=== PATIENT | male | born 1940 | race Two or more races ===

== ENCOUNTER 2020-06-14 10:11 | Inpatient (IN) | payer MEDICARE, OTHER ==
[~2020-06-14] VITALS: Ht 185.4 cm; Wt 106.4 kg
[2020-06-14 10:50] LABS: Basophils # (auto) 0 10 ^3/uL (0-0.2); Basophils % (auto) 0.7 % (0.0-2.0); Eosinophils # (auto) 0 10 ^3/uL (0-0.8); Eosinophils % (auto) 0.3 % (0.0-7.0); Hematocrit 46.7 % (41.0-53.0); Hemoglobin 15.5 g/dL (13.5-17.5); Lymphocytes # (auto) 0.5 10 ^3/uL (0.4-5.4); Lymphocytes % (auto) 8.1 % (10.0-50.0); Mean Corpuscular Hemoglobin 30.2 pg (28.0-32.0); Mean Corpuscular Hgb Conc. 33.2 g/dL (32.0-36.0); Mean Corpuscular Volume 90.8 fL (80.0-100.0); Monocytes # (auto) 0.4 10 ^3/uL (0-1.3); Monocytes % (auto) 6.4 % (0.0-12.0); Neutrophils # (auto) 5.4 10 ^3/uL (1.6-8.6); Neutrophils % (auto) 84.5 % (37.0-80.0); Nucleated Red Blood Cells % 0.1 %; Platelet Count (auto) 204 10^3/uL (140-450); Red Blood Cells 5.14 10^6/uL (4.5-5.90); Red Cell Distribution Width 15.3 % (11.8-14.3); White Blood Cell 6.4 10^3/uL (4.4-10.8)
[2020-06-14 11:09] LABS: Albumin 2.9 g/dL (3.4-5.0); Calcium 8.2 mg/dL (8.5-10.1); Magnesium 2.4 mg/dL (1.6-2.6); Potassium 3.1 mmol/L (3.5-5.1)
[2020-06-14 11:14] LABS: BUN/Creatinine Ratio 13.7; Total Protein 7.1 g/dL (6.4-8.2)
[2020-06-14] MEDS ORDERED: cefTRIAXone 1GM/50ML D5W 50 ML IV ONE (12:30)
[2020-06-14] MEDS ORDERED: SODIUM CHLORIDE 0.9% 1,000 ML IVB ONE (12:30)
[2020-06-14] MEDS ORDERED: POTASSIUM CHL 20 Meq TABLET PO ONE (13:15)
[2020-06-14 13:42] LABS: INR 1.12 (0.9-1.15); Partial Thromboplastin Time 31.9 sec (23.0-31.2)
[2020-06-14] MEDS ORDERED: MORPHINE SULF INJ 2 MG/ML SYRINGE 1ML IV PRN (13:45)
[2020-06-14] MEDS ORDERED: NITROGLYCERIN 0.4 MG SL TAB SL PRN (13:45)
[2020-06-14] MEDS ORDERED: ACETAMINOPHEN 500 MG TAB PO PRN (14:00)
[2020-06-14] MEDS ORDERED: ALBUTEROL SULF HFA 90MCG INH 200DOSE IN SCH (14:00)
[2020-06-14] MEDS ORDERED: POTASSIUM EFFERVESENT TAB 25 MEQ PO ONE (14:15)
[2020-06-14] MEDS ORDERED: ONDANSETRON HCL 4 MG/2 ML VIAL IV PRN (14:15)
[2020-06-14] MEDS ORDERED: LACTULOSE 20Gm/30ML SOLN PO PRN (14:15)
[2020-06-14] MEDS ORDERED: traMADol HCL 50 MG TAB PO PRN (14:15)
[2020-06-14] MEDS ORDERED: DEXTROSE (50%) 50ML SYRG IV PRN (14:15)
[2020-06-14] MEDS ORDERED: LABETALOL HCL 5 MG/ML 4ML SYRINGE IV PRN (15:30)
[2020-06-14] MEDS ORDERED: POTA10TA51 PO (16:59)
[2020-06-14] MEDS ORDERED: CARV12.544 PO (16:59)
[2020-06-14] MEDS ORDERED: DIGO0.12 PO (16:59)
[2020-06-14] MEDS ORDERED: FURO40TA4 PO (16:59)
[2020-06-14] MEDS ORDERED: ATOR20TA50 PO (16:59)
[2020-06-14] MEDS ORDERED: HYDR10TA26 PO (16:59)
[2020-06-14] MEDS ORDERED: AMLO5TAB15 PO (16:59)
[2020-06-14] MEDS ORDERED: TAMS0.4C36 PO (16:59)
[2020-06-14] MEDS: ACCU-CHEK COMFORT CURVE STRIP VI SCH ×2 (17:18→21:34)
--- NOTE | 2020-06-14 17:50 | NUR ---
Telemetry admit from [facility] admitted to Telemetry unit after SBAR received. Patient oriented to Kristyn Pierson, primary RN, unit, room, bed, and unit policies regarding patient care and visiting hours. Patient now on continuous telemetry monitoring, tele box # 12 and telemetry reading on arrival to unit is . Patient placed on bedside oxygen, weighed by bedscale and encouraged to call if they need something. All questions and concerns addressed, patient verbalized understanding. Note:
[2020-06-14 18:00] VITALS: BP 140/74
--- NOTE | 2020-06-14 18:01 | NUR ---
ASSESSMENT NOTE PT IS ALERT ORIENTED X4, AMBULATE NEEDED, ARRIVED VIA WHEELCHAIR TO ROOM 232, A HEARING AIDE NOTED AT THE RT EAR, OCCASIONAL COUGH NOTED, RA, NO DISTRESS NOTED, ROOM ORIENTATION GIVEN TO PT, CALL LIGHT WITHIN REACH
--- NOTE | 2020-06-14 18:50 | NUR ---
PT CONTINUE STABLE,EATING DINNER, NO DISTRESS NOTED, TEMP 99.2, CONTINUE COOL MEASURES
--- NOTE | 2020-06-14 19:30 | NUR ---
OPENING NOTE Received report from day shift RN. Patient is A&O X's 4- guatemalan speaking with no s/s of distress and reports some SOB and cough. Patient is on RA/ 2L O2 via N.C was applied at this time for comfort. Pulse ox is 94%. Educated patient on POC/to use call light when in need of any assistance. Patient verbalized understanding. Bed is in lowest/locked position with side rails up X's 2 and call light is within reach of patient. Will continue care.
[2020-06-14] MEDS: CARVEDILOL 3.125 MG TAB PO SCH (21:28)
[2020-06-14] MEDS: SODIUM CHLOR 0.9% PF (SALINE LOCK) 10ML VIAL/SYR IV SCH ×2 (21:29→23:55)
[2020-06-14] MEDS ORDERED: BUDESONIDE (INHALATION) 180 MCG IH IN SCH (22:00)
[2020-06-14 22:26] VITALS: BP 141/72
--- NOTE | 2020-06-14 22:26 | NUR ---
REPORT GIVEN TO BLAS HARVEY. FULL REPORT GIVEN AND RECOMMENDED TO GET BREATHING TREATMENTS/COUGH SYRUP ON BOARD FOR PATIENT D/T COUGHING EPISODE AFTER PATIENT AMBULATED AND SOME WHEEZING HEARD UPON AUSCULTATION. PATIENT TRANSFERRED VIA WHEELCHAIR AND WITH 3L O2 VIA N.C. INFORMED WES THAT TELE BOX NEEDS TO BE CHANGED WELL AT THIS TIME. PATIENT LEFT WITH ALL PERSONAL BELONGINGS AND WITH NO S/S OF DISTRESS. ENDORSED CARE
--- NOTE | 2020-06-14 22:27 | NUR ---
Pt received from [facility] Upon assessment, pt showing SOB after ambulation. Pt has cough, lung sounds present with wheezing in bilateral lung kahn. Currently oxygen 94% on 3Lo2. T99.3, Pulse 105, resp 22, 151/94 0 pain. Will page front desk coordinator hospitalist for breathing treatment orders.
--- NOTE | 2020-06-14 23:30 | NUR ---
Paged by hospitalist New orders for Robitussin and albuterol. See order history.
[2020-06-14] MEDS ORDERED: guaiFENesin-DM 100/10mg/5ml SYR PO PRN (23:45)
[2020-06-15 00:28] VITALS: BP 141/72
[2020-06-15] MEDS: ALBUTEROL SULF 2.5 MG/0.5ML(0.5%) NEB SOLN NEB PRN (01:16)
[2020-06-15 05:00] VITALS: BP 145/76
--- NOTE | 2020-06-15 06:10 | NUR ---
Respiratory note: PT IS RESTING COMFORTABLY. NO RESPIRATORY DISTRESS NOTED. SPO2 95% ON 3L NC,HR 96, RR 18, BS CLEAR BILATERALLY. PRN MEDNEB TX NOT INDICATED AT THIS TIME. WILL CONTINUE TO MONITOR PT.
[2020-06-15] MEDS: ACCU-CHEK COMFORT CURVE STRIP VI SCH (06:11)
[2020-06-15 07:04] LABS: Calcium 8.2 mg/dL (8.5-10.1); Potassium 3.5 mmol/L (3.5-5.1)
[2020-06-15 07:09] LABS: Cholesterol 106 mg/dL (< 200); Triglycerides 61 mg/dL (< 150)
[2020-06-15 07:12] LABS: BUN/Creatinine Ratio 16.2; Bilirubin, Total 1.1 mg/dL (0.2-1.0); HDL Cholesterol 39 mg/dL (40-59); LDL Cholesterol 64 mg/dL (< 100)
[2020-06-15 09:00] VITALS: BP 145/76
[2020-06-15] MEDS: POTASSIUM CHL 20 Meq TABLET PO SCH (09:45)
[2020-06-15] MEDS: CARVEDILOL 3.125 MG TAB PO SCH ×2 (09:46→22:19)
[2020-06-15] MEDS: ENOXAPARIN SOD 40 MG/0.4 ML SYRINGE SC SCH (09:47)
[2020-06-15] MEDS: FUROSEMIDE 40 MG/4 ML VIAL IV SCH (09:47)
[2020-06-15] MEDS: NITROGLYCERIN 0.2MG/HR TOPICAL PATCH TD SCH (09:47)
[2020-06-15] MEDS ORDERED: DexAMETHasone SOD PHOS 10MG/1ML VIAL INJ IV SCH (10:00)
[2020-06-15] MEDS ORDERED: CHOLECALCIFEROL (VITD3) 2,000 UNIT CAP PO SCH (10:00)
[2020-06-15] MEDS ORDERED: ASCORBIC ACID 1,000 MG TAB PO SCH (10:00)
[2020-06-15] MEDS ORDERED: levoFLOXacin 500MG 100 ML IV SCH (10:00)
[2020-06-15] MEDS ORDERED: ZINC SULFATE 220mg CAP or TAB PO SCH (10:00)
[2020-06-15] MEDS ORDERED: ENALAPRIL MALEATE 2.5 MG TAB PO SCH (10:00)
[2020-06-15] MEDS ORDERED: ASPirin 81 mg TAB PO ONE (11:00)
[2020-06-15] MEDS ORDERED: ACETAMINOPHEN 500 MG TAB PO PRN (11:00)
--- NOTE | 2020-06-15 12:00 | NUR ---
RECEIVED CALL FROM MICROBIOLOGY PER TECH PATIENT IS BLOOD CULTURES ARE POSITIVE(SEE MICRO REPORT) . SPOKE WITH DOCTOR MERI ADORNO MD OF POSITIVE RESULTS. NO NEW ORDERS RECEIVED AT THIS TIME.
[2020-06-15 13:00] VITALS: BP 125/79
[2020-06-15] MEDS: CIPROFLOXACIN 0.3%OPTH(EYE) SOL 5ML RIGHTEYE SCH ×3 (14:00→22:19)
[2020-06-15] MEDS: SODIUM CHLOR 0.9% PF (SALINE LOCK) 10ML VIAL/SYR IV SCH ×2 (14:00→22:23)
--- NOTE | 2020-06-15 14:51 | NUR ---
URINE SAMPLE SENT.
[2020-06-15 15:00] LABS: Urine WBC None Seen /hpf (0 - 3)
[2020-06-15 15:12] LABS: Urine Bacteria NONE SEEN /hpf (None Seen); Urine Blood TRACE /uL (Negative); Urine Mucus FEW (None Seen); Urine Specific Gravity 1.008 (1.001-1.035)
[2020-06-15 17:00] VITALS: BP 130/88
--- NOTE | 2020-06-15 19:20 | NUR ---
Opening Shift Note Assumed care of patient, awake and alert. Patient is a citizen of [place] speaker on 2L nasal cannula. No S/S of distress/SOB or pain. Instructed on POC and to call for assist PRN, will continue to monitor for changes Q1hr and PRN. Bed is locked and in the lowest position. Call light within reach
[2020-06-15 22:00] VITALS: BP 143/74
[2020-06-15] MEDS: ATORVASTATIN 20 MG TAB PO SCH (22:19)
[2020-06-16] VITALS (10 sets, daily range): BP systolic 103–142; BP diastolic 57–84
--- NOTE | 2020-06-16 | NUR ---
Respiratory note: PT SEEN AND ASSESSED FOR PRN MED NEB TX AT 0000. TX NOT INDICATED AT THIS TIME. PT DISPLAYING NO SIGNS OF DISTRESS. SP02 95% ON 2LNC.
[2020-06-16] MEDS: CIPROFLOXACIN 0.3%OPTH(EYE) SOL 5ML RIGHTEYE SCH ×6 (02:00→21:51)
[2020-06-16] MEDS: ALBUTEROL SULF 2.5 MG/0.5ML(0.5%) NEB SOLN NEB PRN ×2 (04:36→08:11)
[2020-06-16] MEDS: SODIUM CHLOR 0.9% PF (SALINE LOCK) 10ML VIAL/SYR IV SCH ×3 (05:49→21:50)
[2020-06-16 07:52] LABS: Potassium 3.3 mmol/L (3.5-5.1)
[2020-06-16 07:58] LABS: BUN/Creatinine Ratio 23.5; Calcium 8.3 mg/dL (8.5-10.1)
[2020-06-16] MEDS: FUROSEMIDE 40 MG/4 ML VIAL IV SCH (09:43)
[2020-06-16] MEDS: ENOXAPARIN SOD 40 MG/0.4 ML SYRINGE SC SCH (09:43)
[2020-06-16] MEDS: ASPirin 81 mg TAB PO SCH (09:43)
[2020-06-16] MEDS: POTASSIUM CHL 20 Meq TABLET PO SCH (09:44)
[2020-06-16] MEDS: NITROGLYCERIN 0.2MG/HR TOPICAL PATCH TD SCH (09:44)
[2020-06-16] MEDS: CARVEDILOL 3.125 MG TAB PO SCH ×2 (09:49→21:51)
[2020-06-16] MEDS ORDERED: ENALAPRIL MALEATE 2.5 MG TAB PO SCH (10:00)
[2020-06-16] MEDS ORDERED: ONDANSETRON HCL 4 MG/2 ML VIAL IV ONE (11:45)
[2020-06-16] MEDS ORDERED: POTASSIUM CHL 20 Meq TABLET PO ONE (11:45)
[2020-06-16 12:49] LABS: Basophils # (auto) 0 10 ^3/uL (0-0.2); Basophils % (auto) 0.6 % (0.0-2.0); Eosinophils # (auto) 0.1 10 ^3/uL (0-0.8); Hematocrit 41.9 % (41.0-53.0); Hemoglobin 13.9 g/dL (13.5-17.5); Lymphocytes # (auto) 0.6 10 ^3/uL (0.4-5.4); Lymphocytes % (auto) 9.5 % (10.0-50.0); Mean Corpuscular Hemoglobin 29.9 pg (28.0-32.0); Mean Corpuscular Hgb Conc. 33.1 g/dL (32.0-36.0); Mean Corpuscular Volume 90.3 fL (80.0-100.0); Monocytes # (auto) 0.6 10 ^3/uL (0-1.3); Monocytes % (auto) 8.9 % (0.0-12.0); Neutrophils # (auto) 4.9 10 ^3/uL (1.6-8.6); Nucleated Red Blood Cells % 0.1 %; Platelet Count (auto) 227 10^3/uL (140-450); Red Blood Cells 4.64 10^6/uL (4.5-5.90); Red Cell Distribution Width 14.7 % (11.8-14.3); White Blood Cell 6.2 10^3/uL (4.4-10.8)
[2020-06-16 13:04] LABS: INR 1.13 (0.9-1.15); Partial Thromboplastin Time 37.3 sec (23.0-31.2)
[2020-06-16 13:06] LABS: BUN/Creatinine Ratio 25.5; Calcium 8.3 mg/dL (8.5-10.1); Potassium 3.4 mmol/L (3.5-5.1)
--- NOTE | 2020-06-16 13:25 | NUR ---
PATIENT TAKEN DOWN TO LONG FILLER CIGAR ROLLER MACHINE FOR PROCEDURE. YARA MONCADA AND DOCTOR HAKEEM INFORMED THAT PATIENT RECEIVED ASPIRIN AND LOVENOX TODAY AND THAT PATIENT HAD NOT RECEIVED LUNCH TRAY AND WAS KEPT NPO SINCE 11:30 HEART CATH CONSENT WHERE DISCUSSED WITH PATIENT BY YARA MONCADA AND WITNESS BY THIS RN.
[2020-06-16] MEDS ORDERED: ANGIOMAX 250 MG VIAL IV ONE (13:30)
[2020-06-16] MEDS ORDERED: HEPARIN SODIUM (PORCINE) 5000 UNITS/ML 1ML VIAL ONE (13:30)
[2020-06-16] MEDS ORDERED: VERAPAMIL 2.5MG/ML INJ 2ML VIAL IV ONE (13:30)
[2020-06-16] MEDS ORDERED: IOHEXOL 350 MG/ML 100ML IJ ONE (13:31)
[2020-06-16] MEDS ORDERED: MIDAZOLAM HCL 1MG/1ML-2 ML VIAL ONE (13:31)
[2020-06-16] MEDS ORDERED: fentaNYL CITRATE 100 MCG/2 ML VL ONE (13:31)
[2020-06-16] MEDS ORDERED: SODIUM CHL 0.9% 0 ML ONE (13:31)
[2020-06-16] MEDS ORDERED: LIDOCAINE 2%HCL (LOCAL ANESTH.) INJ 20ML MDV ONE (13:32)
--- NOTE | 2020-06-16 14:25 | NUR ---
Patient brought to recovery via bed, report received from BLAS Carrion and BLAS Briones. Patient is AO x 4, NAD noted. Right radial site is benign no s/s of bleeding or hematoma formation. Vasc Band is in place, positive circulation, movement and sensation noted to BUE. Patient verbalized understanding to post-procedure care instructions.
--- NOTE | 2020-06-16 14:41 | NUR ---
Report given to primary RN, Ayse.
--- NOTE | 2020-06-16 14:57 | NUR ---
Patient taken to telemetry unit via bed, quality control expert in place. NAD noted upon departure. Primary RNAyse present at bedside to witness right radial site benign, no s/s of bleeding or hematoma formation. Bed set in lowest locked position with side rails up x 2, call light is within reach and bed alarm set on for safety. Care endorsed to BLAS Tavera.
--- NOTE | 2020-06-16 15:03 | NUR ---
PATIENT BACK FROM CONCRETE PILE DRIVER OPERATOR WITH RIGHT WRIST VASO BAND. RIGHT WRIST IS SOFT TO TOUCH AND NO HEMATOMA NOTED. V/S WNL 97.9 TEMP 77 HR 18 RR 96% 113/66 B/P.
--- NOTE | 2020-06-16 15:58 | NUR ---
I faxed life vest order to [facility].
--- NOTE | 2020-06-16 19:15 | NUR ---
Opening Shift Note Assumed care of patient, awake and alert. No S/S of distress/SOB or pain. Patient is a Mohawk speaker. S/p left heart cath via right radial artery. Surgical site is covered with gauze and Tegaderm and shows no hematoma or bleeding. Instructed on POC and to call for assist PRN, will continue to monitor for changes Q1hr and PRN.
--- NOTE | 2020-06-16 21:35 | NUR ---
Respiratory note: NO PRN TX GIVEN AT THIS TIME, NO SOB NOTED. PT ON R/A, 93%, HR 102, RR 20. PT IN THE PROCESS OF PUTTING NASAL CANNULA BACK ON, RUNNING AT 4LPM, DECREASED TO 2LPM.
[2020-06-16] MEDS: ATORVASTATIN 20 MG TAB PO SCH (21:51)
[2020-06-17] MEDS: CIPROFLOXACIN 0.3%OPTH(EYE) SOL 5ML RIGHTEYE SCH ×5 (02:00→18:00)
[2020-06-17] MEDS: SODIUM CHLOR 0.9% PF (SALINE LOCK) 10ML VIAL/SYR IV SCH ×2 (05:43→13:48)
[2020-06-17 06:57] LABS: BUN/Creatinine Ratio 27.1; Calcium 8.4 mg/dL (8.5-10.1); Potassium 3.7 mmol/L (3.5-5.1)
--- NOTE | 2020-06-17 08:20 | NUR ---
Opening Shift Note Received report from donor relations manager nurse and assumed care of the patient, Patient awake and alert. Nasal cannula in place 3L, no S/S of distress/SOB or pain. Patient instructed on POC and to call for assist PRN, bed in lowest position, call light within reach, will continue to monitor for changes Q1hr and PRN.
[2020-06-17 09:00] VITALS: BP 126/71
--- NOTE | 2020-06-17 09:40 | NUR ---
SOCIAL SERVICE AT BEDSIDE
[2020-06-17] MEDS: ASPirin 81 mg TAB PO SCH (09:46)
[2020-06-17] MEDS: CARVEDILOL 3.125 MG TAB PO SCH (09:46)
[2020-06-17] MEDS: POTASSIUM CHL 20 Meq TABLET PO SCH (09:47)
[2020-06-17] MEDS: FUROSEMIDE 40 MG/4 ML VIAL IV SCH (09:48)
[2020-06-17] MEDS: NITROGLYCERIN 0.2MG/HR TOPICAL PATCH TD SCH (09:51)
[2020-06-17] MEDS: ENOXAPARIN SOD 40 MG/0.4 ML SYRINGE SC SCH (09:52)
[2020-06-17] MEDS ORDERED: ENALAPRIL MALEATE 2.5 MG TAB PO SCH (10:00)
--- NOTE | 2020-06-17 10:00 | NUR ---
Patient educated on titrating oxygen for discharge purposes Tested patient oxygen level on room air, rechecked O2 saturation with a reading of 89-90% at rest. Patient noted no s/s of SOB. Titrated patients oxygen level from 3L to 1L. Will recheck O2 saturation on titrated oxygen of 1L.
--- NOTE | 2020-06-17 10:20 | NUR ---
Rechecked patients oxygen saturation Patients oxygen saturation post titration of 3L to 1L 90-91%. Patients O2 tested with coughing/deep breathing. Will continue titrating oxygen level. Will retest on room air and ambulation.
--- NOTE | 2020-06-17 10:50 | NUR ---
Talked to daughter Karlie No password in chart, no update given to Karlie. Questions directed directly to patient. Will confirm with patient on request for password.
--- NOTE | 2020-06-17 11:00 | NUR ---
MD Aguirre at bedside MD Aguirre updated on titration on oxygen from 3 L to 1 L and oxygen saturation after 1L titration with coughing/deep breathing of 90-91%. aware of testing patient oxygen saturation on room air and ambulating.
--- NOTE | 2020-06-17 11:04 | NUR ---
Password Spoke with patient for request of password to update Karlie of care. Password requested: (Viviana)
--- NOTE | 2020-06-17 11:10 | NUR ---
Oxygen saturation reassessed Post ambulation oxygen saturation 94% down to 88% after resting for a minute, Heart rate 96, patient experiencing SOB. Oxygen reapplied via nasal cannula. Will continue to reassess oxygen saturation and signs of SOB PRN.
--- NOTE | 2020-06-17 11:26 | NUR ---
MD Aguirre at bedside Patient updated on POC, new orders received from MD Aguirre for discharge home and Left shoulder x-ray. Awaiting for life vest to arrive for discharge.
--- NOTE | 2020-06-17 11:41 | NUR ---
Assessment Patient is an 80-year-old male, who is alert and oriented Kinyarwanda speaking only. Patient was required a court attendant (Tracee ODONNELL), patient stated that he lives with his son (Suresh Banuelos). Per court attendant, prior to admission to [facility], patient was ambulatory and can do all ADLs independently. Patient is receiving social security as income. Patient stated that his friend (Renea [phone]) will provide transportation post discharge. Per court attendant, patient stated that his son is his support system. Patient was not receptive to receive Advance Directive forms. Discharge planning: Patient has no post discharge needs to determine at this moment. Addendum: 06/17/20 at 1142 by BRITTANY JAMES Amended: Links added.
[2020-06-17 12:30] VITALS: BP 120/69
--- NOTE | 2020-06-17 13:30 | NUR ---
TAHIRA WICKER MOLDED CANDLES AT BEDSIDE PATIENT RECEIVED EDUCATION FOR [employer]OLL LIFE VEST WITH THERMAL CUTTER HELPER AT BEDSIDE, PATIENT HANDED PAMPHLET OF EDUCATION GIVEN. PATIENT HAS NO FURTHER QUESTIONS ON EDUCATION GIVEN. AWAITING LIFE VEST FOR FITTING.
[2020-06-17 14:07] VITALS: BP 120/69
--- NOTE | 2020-06-17 15:59 | NUR ---
Updated patient on POC/[employer] LifeVest [employer] rep to be at bedside at approximately [phone] per [employer] Life[employer]est rep. Patient verbalized understanding.
--- NOTE | 2020-06-17 16:05 | NUR ---
RE: Next of Kin Contacted Karlie to update on discharge education and discharge plan. Karlie verbalized understanding.
[2020-06-17] MEDS ORDERED: ASPI81CH43 PO (16:12)
[2020-06-17] MEDS ORDERED: CARV6.25 PO (16:12)
[2020-06-17 16:38] VITALS: BP 132/74
--- NOTE | 2020-06-17 17:50 | NUR ---
Discharge prescriptions faxed to preferred pharmacy.
[2020-06-17] MEDS ORDERED: CIPR0.3S40 RIGHTEYE (17:54)
[2020-06-17] MEDS ORDERED: ENAL5TAB10 PO (17:54)
[2020-06-17] MEDS ORDERED: ISOS20TA49 PO (17:54)
--- NOTE | 2020-06-17 18:16 | NUR ---
Verified discharge prescriptions were received by [facility] pharmacy. Prescriptions received per pharmacist.
--- NOTE | 2020-06-17 19:30 | NUR ---
Care endorsed/End of shift Patient resting in bed with even and unlabored respirations, no distress noted. Fall precautions in place with call light within reach. Discharge pending Zoll LifeVest placement. Care endorsed to BLAS Neville.
--- NOTE | 2020-06-17 19:40 | NUR ---
Opening Shift Note Assumed patient care from Day Shift RN. Patient is AOx4 and sitting up. Patient is aware that D/C will be done after Zoll life vest fitting. Bed is locked in lowest position and HOB is at 90 degrees. Call light is within reach. No complaints of pain, no s/s of distress or SOB. Will continue to monitor.
--- NOTE | 2020-06-17 19:51 | NUR ---
Respiratory note: PT ASSESSED FOR PRN TX AT THIS TIME. HEART RATE 91. RESPIRATORY RATE 18. SPO2 92% ON 2L NC. BREATH SOUNDS CLEAR T/O. PT DENIES ANY RESPIRATORY DISTRESS AT THIS TIME. PT INSTRUCTED TO HAVE RESPIRATORY CALLED IF THEY FEEL SOB OR FEEL DIFFICULTY BREATHING.
--- NOTE | 2020-06-17 20:49 | NUR ---
[employer] Life Vest Rep. on Unit Patient is being fitted for Zoll life Vest at this time.
--- NOTE | 2020-06-17 21:30 | NUR ---
Patient D/C Patient IV d/c'd and Tele monitor D/C'd. Patient information given and daughter in law Karlie is here to pickle maker patient. Patient vitals are stable. No complaints of pain or s/s of distress. All questions answered with Lao speaking RN Gerda, used for translation. Patient verbally agreed to understanding. Patient taken off unit via wheelchair by CATALYST MANUFACTURING OPERATOR.
== END 2020-06-17 21:30 | disposition home or self-care (01) | DRG 280 ==
LOC: ER 10:11 → EDBD 10:11 → TELE 10:12 → TELE-EAST 17:48 → TELE-CENTR 22:42
PROVIDERS: ADMIT Internal Medicine; ATTEND Internal Medicine
PROC: 4A023N7 Measurement of Cardiac Sampling and Pressure, Left Heart, Percutaneous Approach (ICD-10-PCS; principal; 2020-06-16)
PROC: B2111ZZ Fluoroscopy of Multiple Coronary Arteries using Low Osmolar Contrast (ICD-10-PCS; 2020-06-16)
PROC: B2151ZZ Fluoroscopy of Left Heart using Low Osmolar Contrast (ICD-10-PCS; 2020-06-16)
DX: I11.0 Hypertensive heart disease with heart failure (principal); I21.4 Non-ST elevation (NSTEMI) myocardial infarction; J96.00 Acute respiratory failure, unspecified whether with hypoxia or hypercapnia; J81.1 Chronic pulmonary edema; I50.23 Acute on chronic systolic (congestive) heart failure; I42.9 Cardiomyopathy, unspecified; E87.6 Hypokalemia; R73.9 Hyperglycemia, unspecified; I48.91 Unspecified atrial fibrillation; I48.0 Paroxysmal atrial fibrillation; E66.9 Obesity, unspecified; E78.5 Hyperlipidemia, unspecified; Z20.828 Contact with and (suspected) exposure to other viral communicable diseases; Z79.82 Long term (current) use of aspirin; Z79.899 Other long term (current) drug therapy; Z82.49 Family history of ischemic heart disease and other diseases of the circulatory system; Z83.3 Family history of diabetes mellitus; Z85.46 Personal history of malignant neoplasm of prostate
CPT/HCPCS: 36415; 71045; 73030; 80048; 80053; 80061; 81001; 82550; 82962; 83036; 83605; 83735; 83880; 84154; 84443; 84484; 85025; 85610; 85730; 86850; 86900; 86901; 87040; 87077; 87186; 87426; 93005; 93306; 93458; 94640; 99152; G0378; J0696; J1956; J2250; J3490

== ENCOUNTER → 2020-07-08 | Outpatient (CLI) | payer MEDICARE, OTHER ==
[~2020-07-08] MED LIST: AMLO5TAB15 PO; ASPI81CH43 PO; ATOR20TA50 PO; CARV6.25 PO; CIPR0.3S40 RIGHTEYE; DIGO0.12 PO; ENAL5TAB10 PO; FURO40TA4 PO; HYDR10TA26 PO; ISOS20TA49 PO; POTA10TA51 PO; TAMS0.4C36 PO
== END | disposition home or self-care (01) ==
LOC: LAB 07:35
PROVIDERS: ATTEND Nurse Practitioner Family
DX: U07.1 COVID-19 (principal)